=== PATIENT | male | born 1985 | race African-American/Black ===

== ENCOUNTER 2020-12-20 01:04 | Emergency (ER) | payer SELFPAY ==
[2020-12-20 02:19] LABS: BASOPHIL 0.5 % (0-2); EOSINOPHIL 0.1 % (0-5); HCT 43.6 % (42.0-52.0); LYMPHOCYTE 15.8 % (15-48); MCH 28.3 pg (25.0-31.0); MCHC 32.1 g/dL (32.0-36.0); MCV 88.1 fL (78.0-100.0); MONOCYTE 4.7 % (0-12); MPV 8.5 fL (6.0-9.5); NEUTROPHIL 78.1 % (41-80); NRBC 0; PLT 337 K/uL (150-400); RBC 4.95 M/uL (4.70-6.00); RDW 13.2 % (11.5-14.0); WBC 14.3 K/uL (4.0-10.5)
[2020-12-20 02:46] LABS: BILIRUBIN - TOTAL 0.1 mg/dL (0.2-1.0); BUN/CREAT RATIO (CALC) 18.5 RATIO; CREATININE 0.81 mg/dL (0.67-1.17); GLOBULIN (CALCULATION) 3.9 g/dL; POTASSIUM 3.4 mmol/L (3.5-5.1); TOTAL PROTEIN 7.9 g/dL (6.4-8.2)
[2020-12-20 03:20] LABS: BILIRUBIN NEGATIVE (NEGATIVE); BLOOD NEGATIVE Ery/uL (NEGATIVE); CLARITY CLEAR (CLEAR); COLOR YELLOW (YELLOW); GLUCOSE (U) TRACE mg/dL (NORMAL); LEUKOCYTES NEGATIVE Leu/uL (NEGATIVE); NITRITE NEGATIVE (NEGATIVE); PROTEIN NEGATIVE (NEGATIVE); SPECIFIC GRAVITY >=1.030 (1.001-1.030); UROBILINOGEN 0.2 mg/dL (0.2-1.0); pH 5.5 (5.0-9.0)
[2020-12-20] MEDS ORDERED: ONDANSETRON ODT4 MG PO (04:41)
[2020-12-20] MEDS ORDERED: ANTIVERT12.5 MG PO (04:41)
== END 2020-12-20 04:50 | disposition home or self-care (01) ==
LOC: FER 01:04
PROVIDERS: Emergency Medicine
DX: R42 Dizziness and giddiness (principal); E11.9 Type 2 diabetes mellitus without complications; I10 Essential (primary) hypertension; E78.5 Hyperlipidemia, unspecified; Z79.84 Long term (current) use of oral hypoglycemic drugs; Z79.899 Other long term (current) drug therapy
CPT/HCPCS: 36415; 70450; 71045; 80053; 81003; 84484; 85025; 93005; J2405; J2550